=== PATIENT | female | born 1975 | race Asian ===

== ENCOUNTER 2017-12-31 16:56 | Outpatient (CLI) | payer BC ==
--- NOTE | 2017-12-31 18:35 | RAD ---
LUMBAR SPINE TWO VIEWS: HISTORY: Low back pain. FINDINGS: There are five lumbar type vertebrae. The pedicles are intact. Vertebral body heights and AP alignm ent are maintained. Minimal rightward convex curvature. IMPRESSION: No acute osseous abnormalities are demonstrated. POS: MARK
== END 2017-12-31 16:57 | disposition home or self-care (01) ==
LOC: BICRAD 16:56
PROVIDERS: ATTEND Family Medicine
DX: M54.5 Low back pain (principal)
CPT/HCPCS: 72100